=== PATIENT | female | born 1960 | race Caucasian/White ===

== ENCOUNTER → 2020-05-18 | Outpatient (CLI) | payer BC ==
[~2020-05-18] MED LIST: LIDOCAINE 1% Multi-Dose 20 ML VIAL. ID ONE
--- NOTE | 2020-05-18 18:40 | RAD ---
EXAM: ULTRASOUND-GUIDED THYROID FINE-NEEDLE ASPIRATION. HISTORY: Thyroid nodule. Ultrasound-guided biopsy is requested. 3 nodules were recommended for biopsy. Patient has a personal history of previous right benign thyroidectomy. FINDINGS: The procedure along with its risks and benefits were explained to the patient. They agreed to proceed. A timeout procedure was performed. Sonographic images of the thyroid gland were obtained. The target nodules in the left thyroid lobe and in the isthmus was adequately visualized for biopsy. The superior mid left thyroid lobe nodule was initially targeted for biopsy. Thereafter, the isthmus lesion was targeted for biopsy. Thereafter, the inferior mid thyroid lobe nodule was targeted for biopsy. The overlying skin was sterilely prepped and infiltrated with 1% lidocaine for local anesthesia. Under ultrasound guidance, 4 aspirates of the first nodule were obtained using 25-gauge needles, and 3 aspirates each of the remaining 2 nodules were obtained with 25-gauge needles. These were hand delivered to pathology who determined them adequate for diagnosis. A sterile dressing was placed. There were no immediate complications. IMPRESSION: 1. Successful ultrasound-guided fine-needle aspiration of the 3 left lobe and isthmus thyroid nodules. Electronically signed by: Pancho Rojas MD (05/18/2020 6:37 PM) [id number]
--- NOTE | 2020-05-21 10:53 | PATHOLOGY ---
Note [facility] Accession Number: [id number] TESTS RESULT FLAG UNITS REF RANGE LAB Clinician Provided Cytology Information No. of containers..01 Other (Miscellaneous) Source: ISTHMUS THYROID DIAGNOSIS: ISTHMUS THYROID NEGATIVE FOR MALIGNANT CELLS. BETHESDA CATEGORY II. SPECIMEN CONSISTS OF BENIGN FOLLICULAR CELLS, HEMOSIDERIN-LADEN MACROPHAGES, COLLOID, AND BLOOD. THIS PATTERN IS CONSISTENT WITH A BENIGN FOLLICULAR NODULE. THIS INTERPRETATION INCLUDES EVALUATION OF A CELL BLOCK. Pathologist ICD10: 02 E04.1 Signed out by: 02 Jose Varner MD, Pathologist NPI- [id number] Performed by: Rivera Bhandari, [employer] ([facility]) Gross description: 30ML, PINK, 2 FX 4 DQ /LCS 05/18/2020 1843 Local FLAG LEGEND: L-Low Normal,H-High Normal,LL-Alert Low,HH-Alert High <-Panic Low,>-Panic High,A-Abnormal,AA-Critical Abnormal Performed at: [facility] [address] [place] [address] Grady Sandoval MD, 02 DEYSI [facility] [address] [address] Jose Varner MD, Specimen Comment: A courtesy copy of this report has been sent to [phone] Specimen Comment: [phone] Specimen Comment: Report sent to / DR GUY Specimen Comment: A duplicate report has been generated due to demographic updates. Performed at: [address], [place] [id number] MD Grady Sandoval MD Phone: [phone]
--- NOTE | 2020-05-23 10:12 | PATHOLOGY ---
Note [facility] Accession Number: [id number] TESTS RESULT FLAG UNITS REF RANGE LAB Clinician Provided Cytology Information No. of containers..01 Other (Miscellaneous) Source: SUP LT MID THYROID DIAGNOSIS: SUP LT MID THYROID NEGATIVE FOR MALIGNANT CELLS. BETHESDA CATEGORY II. SPECIMEN CONSISTS OF BENIGN FOLLICULAR CELLS, HEMOSIDERIN-LADEN MACROPHAGES, COLLOID, AND BLOOD. THIS PATTERN IS CONSISTENT WITH A BENIGN FOLLICULAR NODULE. THIS INTERPRETATION INCLUDES EVALUATION OF A CELL BLOCK. Pathologist ICD10: 02 E04.1 Signed out by: 02 Casey Mendoza MD, Pathologist NPI- [id number] Performed by: Deb Ji, [employer] ([facility]) Gross description: 30ML, PINK, 3 FX 4 DQ /LCS 05/18/2020 1838 Local FLAG LEGEND: L-Low Normal,H-High Normal,LL-Alert Low,HH-Alert High <-Panic Low,>-Panic High,A-Abnormal,AA-Critical Abnormal Performed at: [facility] [place] [address] [facility] [address] [place] [address] Grady Sandoval MD, 02 PKYKS [facility] [place] [address] [place] [address] Casey Mendoza MD, Specimen Comment: A courtesy copy of this report has been sent to [phone] Specimen Comment: [phone] Specimen Comment: Report sent to / DR GUY Performed at: [address], [place], [place] [id number] MD Grady Sandoval MD Phone: [phone]
--- NOTE | 2020-05-23 10:12 | PATHOLOGY ---
Note [facility] Accession Number: [id number] TESTS RESULT FLAG UNITS REF RANGE LAB Clinician Provided Cytology Information No. of containers..01 Other (Miscellaneous) Source: INF LEFT MID THYROID DIAGNOSIS: INF LEFT MID THYROID NEGATIVE FOR MALIGNANT CELLS. BETHESDA CATEGORY II. SPECIMEN CONSISTS OF BENIGN FOLLICULAR CELLS, HEMOSIDERIN-LADEN MACROPHAGES, COLLOID, AND BLOOD. THIS PATTERN IS CONSISTENT WITH A BENIGN FOLLICULAR NODULE. THIS INTERPRETATION INCLUDES EVALUATION OF A CELL BLOCK. Pathologist ICD10: 02 E04.1 Signed out by: 02 Casey Mendoza MD, Pathologist NPI- [id number] Performed by: Deb Ji, [employer] ([facility]) Gross description: 30ML, PINK, 2 FX 4 DQ /LCS 05/18/2020 1840 Local FLAG LEGEND: L-Low Normal,H-High Normal,LL-Alert Low,HH-Alert High <-Panic Low,>-Panic High,A-Abnormal,AA-Critical Abnormal Performed at: [facility] [address] [facility] [address] [place] [address] Grady Sandoval MD, 02 PKYKS [facility] [address] [place] [address] Casey Mendoza MD, Specimen Comment: A courtesy copy of this report has been sent to [phone] Specimen Comment: [phone] Specimen Comment: Report sent to / DR GUY Performed at: [address], [place], [place] [id number] MD Grady Sandoval MD Phone: [phone]
== END | disposition home or self-care (01) ==
LOC: US 10:54
PROVIDERS: ATTEND Family Medicine
DX: E04.2 Nontoxic multinodular goiter (principal); Z79.899 Other long term (current) drug therapy; Z88.0 Allergy status to penicillin
CPT/HCPCS: 10005; 10006; 88173; 88305; J3490; 60300; 76942